=== PATIENT | female | born 1990 | race Caucasian/White ===

== ENCOUNTER 2016-12-29 21:46 | Outpatient (CLI) | payer OTHER ==
[~2016-12-29] VITALS: Ht 160 cm; Wt 74.7 kg
[~2016-12-29 21:46] MED LIST: PREN1TAB79 PO
[2016-12-29 22:09] VITALS: Ht 160 cm; Wt 74.7 kg
[2016-12-29 22:10] VITALS: BP 102/58; PULSE 74; RESP 18
--- NOTE | 2016-12-29 23:34 | RADRPT ---
PROCEDURE: US OB. CLINICAL INDICATION: Clinical concern for leaking amniotic fluid TECHNIQUE: Pelvic ultrasound performed for biophysical profile. COMPARISON: None FINDINGS: Single intrauterine gestation present with heart rate at 128 beats per minute. Presentation is ceph alic. Placenta is posterior, grade 1. Biophysical profile score is 8/8 (breathing=2, movement=2, t one =2, fluid volume=2). Amniotic fluid volume is within normal limits, with ESAU = 15.3 cm. RPTAT:HJJR IMPRESSION: 1. Biophysical profile score 8/8. 2. Amniotic fluid index is normal estimated at 15.3 cm. Physician Marjorie Date Time Electronically viewed and signed by Physician Marjorie on 12/29/2016 23:33 JR/
--- NOTE | 2016-12-29 23:35 | RADRPT ---
PROCEDURE: Obstetrical ultrasound greater than 14 weeks CLINICAL INDICATION: Active labor. Evaluate cervical length TECHNIQUE: Real time sonographic imaging of the gravid uterus is performed transabdominally and mu ltiple static harrington scale images of the cervix are submitted to the PACS for review. COMPARISON: Biophysical profile 12/29/2016 FINDINGS: The cervical os is closed with a normal cervical length of 2.5 cm. RPTAT:HJJR IMPRESSION: 1. Single viable intrauterine gestation with the cervical length estimated at 2.5 cm. Physician Marjorie Date Time Electronically viewed and signed by Physician Marjorie on 12/29/2016 23:35 JR/
[2016-12-29 23:49] LABS: ADD UMIC YES; URINE BILIRUBIN (Dip) 1+ (NEGATIVE); URINE BLOOD (Dip) NEGATIVE (NEGATIVE); URINE COLOR LT. YELLOW (YELLOW); URINE GLUCOSE (Dip) NEGATIVE (NEGATIVE); URINE KETONES (Dip) NEGATIVE (NEGATIVE); URINE LEUKOCYTE ESTERASE (Dip) 2+ (NEGATIVE); URINE NITRITE (Dip) NEGATIVE (NEGATIVE); URINE TOTAL PROTEIN (Dip) TRACE (NEGATIVE); URINE UROBILINOGEN (Dip) 2.0 E.U./dL (0.1-1.0)
[2016-12-30 00:20] LABS: ICTOTEST NEGATIVE (NEGATIVE)
[2016-12-30 00:21] LABS: BACTERIA,URINE FEW; SQUAMOUS EPITHELIAL CELL,UR MANY; URINE RBCS 0-2 /HPF (0)
--- NOTE | 2016-12-30 01:58 | QN ---
Documentation Comment 27 y.o G3!P1A!(sab) at 26weeks c/o srom sent for evaluation ROM plus neg spec exam no fluid FNN sent CVL 2.5 cm EFM uc 1-2 in hr u/a wbc 15-20 leuko estrase ++ urine culture was sent Rx macrobid BID #20 to be f/u st her OB ZACHARY QUINONES MD Dec 30, 2016 01:58
== END 2016-12-30 00:50 | disposition home or self-care (01) ==
LOC: OBT 21:46 → L-D 21:47 → OBT 12-30 00:50
PROVIDERS: ATTEND Obstetrics & Gynecology
DX: O26.892 Other specified pregnancy related conditions, second trimester (principal); Z3A.26 26 weeks gestation of pregnancy
CPT/HCPCS: 76817; 76818; 81001; 82731; 84112; 87086; Z7500; G0463

== ENCOUNTER 2017-03-15 14:52 | Inpatient (IN) | payer OTHER ==
[~2017-03-15] VITALS: Ht 160 cm; Wt 75.9 kg
[2017-03-15 15:42] VITALS: BP 103/58; PULSE 74; RESP 18
[2017-03-15 15:44] VITALS: Ht 160 cm; Wt 75.9 kg
--- NOTE | 2017-03-15 16:30 | RADRPT ---
PROCEDURE: Obstetrical ultrasound CLINICAL INDICATION: Labor TECHNIQUE: Multiple sonographic images of the pelvis were obtained. The images were reviewed on a PACS workstation. COMPARISON: None FINDINGS: The cervix is not well visualized. There is a single viable intrauterine gestation. Cardiac activity is present with 121 beats per minute. There is a vertex presentation. The placenta is posterior. There is no evidence for an abruption or placenta previa. There is a subjectively normal amount of amniotic fluid. Measurements were made in order to determine age. The results are as follows (cm): BPD =9.25 HC =32.25 AC =33.07 FL =7.21 Estimated gestational age by ultrasound of approximately 37 weeks, 0 days. The estimated date of delivery by ultrasound is 04/05/2017. Estimated gestational age by LMP of approximately 37 weeks, 0 days. The estimated date of delivery by LMP is 04/05/2017. EFW = 3082 grams (55th percentile) IMPRESSION: Single viable intrauterine gestation of approximately 37 weeks, 0 days . The estimated date of delivery is 04/05/2017 . Dating by ultrasound is consistent with dating by LMP. Cephalic presentation. Estimated weight is in the 55th percentile. RPTAT: EE Physician Tita Date Time Electronically viewed and signed by Physician Tita on 03/15/2017 16:29 /
--- NOTE | 2017-03-15 16:31 | RADRPT ---
PROCEDURE: US OB biophysical profile. CLINICAL INDICATION: evaluation, labor TECHNIQUE: Multiple sonographic images of the pelvis were obtained. The images were reviewed on a PACS workstation. COMPARISON: No prior studies are available for comparison. FINDINGS: There is a single viable intrauterine gestation. Cardiac activity is present with 136 beats per min nilda. There is a vertex presentation. The placenta is posterior. There is no evidence of placental abruption. There is a low - normal amount of amniotic fluid with an ESAU = 8.4 cm. Biophysical profile: movement 2/2 tone 2/2. breathing 2/2 ESAU 2/2 Total 02/28 RPTAT: AA . IMPRESSION: Normal biophysical profile. Low - normal ESAU of 8.4 cm. Physician Tita Date Time Electronically viewed and signed by Physician Tita on 03/15/2017 16:30 /
--- NOTE | 2017-03-15 20:54 | TRIAGE ---
OB Triage Datetime Report Generated by CPN: 03/15/2017 20:54 Datetime: 03/15/2017 20:38 Stage of : OB Triage Datetime: 03/15/2017 20:32 Labor Evaluation Frequency: 4-5 Monitor Mode: External Duration (sec)2399: 60 Quality: Moderate Pattern: Normal: <= 5 Contractions in 10 Minutes Resting Tone [place]: Relaxed Heart Rate FHR Baseline Rate: 130 Monitor Mode: External US FHR Baseline Changes: No Baseline Change Variability: Moderate 6-25 bpm Accelerations: 15X15 Decelerations: None Category: Category I Pain Assessment Pain Scale: 5 Pain Presence: Intermittent Pain Type: Contraction Pain Location: Abdomen Vaginal Exam Dilatation (cms): 5.0 Effacement (%): 80 Station: -2 Exam By: E LATISHA Membrane Status: Intact Vaginal Bleeding: Normal Show Cervix, Consistency: Soft Cervix, Position: Midposition Presentation 'A': Cephalic Datetime: 03/15/2017 19:53 Stage of : OB Triage Maternal Assessment Level of Consciousness: Fully Conscious Headache: Denies Blurred Vision: No Nausea/Vomiting: Denies Facial Edema: None Labor Evaluation Frequency: placed Monitor Mode: External Resting Tone [place]: Relaxed Heart Rate FHR Baseline Rate: 140 Monitor Mode: External US Pain Assessment Pain Scale: 5 Pain Presence: Intermittent Pain Type: Contraction Pain Location: Abdomen Datetime: 03/15/2017 17:00 Stage of : OB Triage Maternal Assessment Level of Consciousness: Fully Conscious Labor Evaluation Frequency: 4-15 Monitor Mode: External Duration (sec)2399: 70-120 Quality: Moderate Resting Tone [place]: Relaxed Heart Rate FHR Baseline Rate: 135 Monitor Mode: External US Variability: Moderate 6-25 bpm Accelerations: 15X15 Decelerations: None Pain Assessment Pain Scale: 3 Pain Presence: Intermittent Pain Type: Cramping Pain Location: Abdomen Pain Goal: 3 Pain Relief Measures: Comfort Measures Membrane Status: Intact Vaginal Bleeding: None Datetime: 03/15/2017 16:36 Vaginal Exam Dilatation (cms): 3.0 Effacement (%): 70 Station: -2 Exam By: tiffanie Vaginal Bleeding: None Cervix, Consistency: Soft Cervix, Position: Midposition Presentation 'A': Cephalic Datetime: 03/15/2017 16:07 Stage of : OB Triage Maternal Assessment Level of Consciousness: Fully Conscious Labor Evaluation Frequency: 5-13 Monitor Mode: External Duration (sec)2399: 60-200 Quality: Moderate Resting Tone [place]: Relaxed Heart Rate FHR Baseline Rate: 135 Monitor Mode: External US Variability: Moderate 6-25 bpm Accelerations: 15X15 Decelerations: None Category: Category I Pain Assessment Pain Scale: 3 Pain Presence: Intermittent Pain Type: Cramping Pain Location: Abdomen Pain Goal: 3 Pain Relief Measures: Comfort Measures Membrane Status: Intact Vaginal Bleeding: None Datetime: 03/15/2017 15:30 Assessment Type: Triage Maternal Assessment Level of Consciousness: Fully Conscious DTR's/Clonus: DTRs 2+; No Clonus Headache: Denies Blurred Vision: No Respiratory Effort: Unlabored; Regular Rhythm; Equal Expansion Breath Sounds, Left: Clear and Equal Breath Sounds, Right: Clear and Equal Nausea/Vomiting: Denies RUQ Epigastric Pain: Denies Lower Extremities Edema: None Degree: None Upper Extremities Edema: None Degree: None Facial Edema: None Fall Risk Assessment History of Falling: (0) No Secondary Diagnosis: (0) No Ambulatory Aid: (0) Bedrest/Nurse Assist IV Therapy: (0) No Gait: (0) Normal/Bedrest/Immobile Mental Status: (0) Oriented to Own Ability Fall Score: 0 Fall Risk Score Definition: No Risk: No action required Datetime: 03/15/2017 15:25 Monitor Mode: External Monitor Mode: External US Datetime: 03/15/2017 15:03 Time of Arrival: 03/15/2017 14:44 EGA: 37.0 Arrived By: Ambulatory Arrived From: Office Chief Complaint: PT SENT IN FOR C/O UC'S Movement: Present Contractions: Denies/Absent Rupture of Membranes: Denies Vaginal Bleeding: None Vaginal Discharge: Denies Recent Sexual Intercouse: Denies Abdominal Trauma: Not Applicable Patient Complaints: None Time Provider Notified: 03/15/2017 16:30 Provider Notified: ESHAHGIAN Initial Plan: EFM, BPP, EFW Datetime: 12/30/2016 00:50 Stage of : OB Triage Datetime: 12/30/2016 00:49 Labor Evaluation Frequency: 1/HR Monitor Mode: External Duration (sec)2399: 60 Quality: Mild Pattern: Normal: <= 5 Contractions in 10 Minutes Resting Tone [place]: Relaxed Heart Rate FHR Baseline Rate: 135 Monitor Mode: External US FHR Baseline Changes: No Baseline Change Variability: Moderate 6-25 bpm Accelerations: 15X15 Decelerations: None Category: Category I Datetime: 12/30/2016 00:00 Labor Evaluation Frequency: 1/HR Monitor Mode: External Duration (sec)2399: 60 Quality: Mild Pattern: Normal: <= 5 Contractions in 10 Minutes Resting Tone [place]: Relaxed Heart Rate FHR Baseline Rate: 135 FHR Baseline Changes: No Baseline Change Variability: Moderate 6-25 bpm Accelerations: 10X10 Decelerations: None Category: Category II Datetime: 12/29/2016 23:00 Labor Evaluation Frequency: 2/HR Monitor Mode: External Duration (sec)2399: 60 Quality: Mild Pattern: Normal: <= 5 Contractions in 10 Minutes Resting Tone [place]: Relaxed Heart Rate FHR Baseline Rate: 135 Monitor Mode: External US FHR Baseline Changes: No Baseline Change Variability: Moderate 6-25 bpm Accelerations: 10X10 Decelerations: None Category: Category II Datetime: 12/29/2016 22:25 Vaginal Exam Dilatation (cms): 0.0 Effacement (%): 0 Station: -3 Exam By: Lena LYN RN Vaginal Bleeding: None Cervix, Consistency: Firm Cervix, Position: Posterior Datetime: 12/29/2016 22:03 Stage of : OB Triage Assessment Type: Triage Time of Arrival: 12/29/2016 21:43 Arrived By: Wheelchair Arrived From: Home Chief Complaint: ROM X3 DAYS Time Provider Notified: 12/29/2016 22:38 Provider Notified: JONI Initial Plan: CALL RYAN RUTLEDGE (Annotations: Data stored by CPN on behalf of user) Maternal Assessment Level of Consciousness: Fully Conscious DTR's/Clonus: DTRs 2+; No Clonus Headache: Denies Blurred Vision: No Respiratory Effort: Unlabored; Regular Rhythm; Equal Expansion Breath Sounds, Left: Clear and Equal Breath Sounds, Right: Clear and Equal Nausea/Vomiting: Denies RUQ Epigastric Pain: Denies Lower Extremities Edema: None Degree: None Upper Extremities Edema: None Degree: None Facial Edema: None Temperature Route: Oral Fall Risk Assessment History of Falling: (0) No Secondary Diagnosis: (0) No Ambulatory Aid: (0) Bedrest/Nurse Assist IV Therapy: (0) No Gait: (0) Normal/Bedrest/Immobile Mental Status: (0) Oriented to Own Ability Fall Score: 0 Fall Risk Score Definition: No Risk: No action required Monitor Mode: External Monitor Mode: External US Pain Assessment Pain Scale: 0
[2017-03-15] MEDS ORDERED: CARBOPROST 250 MCG INJ IM PRN (21:00)
[2017-03-15] MEDS ORDERED: LIDOCAINE 1% (MPF) 30 ML INJ INJ PRN (21:00)
[2017-03-15] MEDS ORDERED: BUTORPHANOL 2 MG INJ IV PRN (21:00)
[2017-03-15] MEDS ORDERED: OXYTOCIN 30 UNITS/LR 500 ML IV PRN (21:00)
[2017-03-15] MEDS ORDERED: MISOPROSTOL 200 MCG TAB PR PRN (21:00)
[2017-03-15] MEDS ORDERED: IBUPROFEN 600 MG TAB PO PRN (21:00)
[2017-03-15] MEDS ORDERED: AMPICILLIN 2 GM/NS (PMX) 100 ML IV ONE (21:00)
[2017-03-15] MEDS ORDERED: METHYLERGONOVINE 0.2 MG INJ IM PRN (21:00)
[2017-03-15] MEDS ORDERED: OXYTOCIN 30 UNITS/LR 500 ML IV SCH ×2 (21:00)
[2017-03-15] MEDS: LACTATED RINGER'S 1,000 ML IV SCH (21:25)
[2017-03-15 21:39] LABS: BASOPHILS % 0.3 % (0.0-2.0); EOSINOPHILS % 0.4 % (0.0-7.0); HEMATOCRIT 34.9 % (37.0-47.0); HEMOGLOBIN 11.7 g/dl (12.0-16.0); LYMPHOCYTES # 2.6 10^3/ul (0.8-2.9); LYMPHOCYTES % 29.3 % (15.0-51.0); MEAN CORPUSCULAR HEMOGLOBIN 27.5 pg (29.0-33.0); MEAN CORPUSCULAR HGB CONC 33.5 g/dl (32.0-37.0); MEAN CORPUSCULAR VOLUME 82.1 fl (82.0-101.0); MEAN PLATELET VOLUME 10.8 fl (7.4-10.4); MONOCYTE # 0.6 10^3/ul (0.3-0.9); MONOCYTES % 6.9 % (0.0-11.0); NEUTROPHILS % 62.7 % (39.0-77.0); PLATELET COUNT 261 10^3/UL (140-415); RED BLOOD COUNT 4.25 10^6/ul (4.20-5.40); RED CELL DISTRIBUTION WIDTH 14.6 % (11.5-14.5); WHITE BLOOD COUNT 8.9 10^3/ul (4.8-10.8)
[2017-03-15 21:53] LABS: INR 0.95; PROTIME 12.7 Sec (12.2-14.2)
[2017-03-15 21:54] LABS: PARTIAL THROMBOPLASTIN TIME 31.9 Sec (25.0-35.0)
[2017-03-15] MEDS ORDERED: LACTATED RINGER'S 1,000 ML IV PRN (22:00)
[2017-03-16] MEDS ORDERED: AMPICILLIN 1 GM/NS (PMX) 50 ML IV SCH (01:00)
[2017-03-16] MEDS: LACTATED RINGER'S 1,000 ML IV SCH ×3 (05:09→22:05)
[2017-03-16] MEDS ORDERED: OXYTOCIN 30 UNITS/LR 500 ML IV SCH (20:00)
--- NOTE | 2017-03-16 20:14 | PREOPHP ---
DATE OF ADMISSION: 03/15/2017 Ms. Geovanna Collins is a 27-year-old, 4, para 2, EDC 04/05/2017. Intrauterine at 37 weeks' gestational age, admitted in labor. She complains of contractions regularly and pain scale is 6/10. She denies any vaginal bleeding or discharge. Currently her vaginal exam is 580 -2. She has an artificial rupture of membrane with clear fluids. Her care took place at [facility]. PAST MEDICAL HISTORY: None. MEDICATIONS: vitamins. PAST SURGICAL HISTORY: None. OB HISTORY: x2 vaginal deliveries, x1 missed baby. FINISHED GOODS STOCK CLERK HISTORY: Regular, 34 days. Denies any sexually transmitted disease. Sexually active with 1 partner. SOCIAL HISTORY: Denies any smoking, drugs, or alcohol. FAMILY HISTORY: None. REVIEW OF SYSTEMS: All within normal except history of present illness. PHYSICAL EXAMINATION: HEENT: Within normal. NECK: Without CARDIAC: S1, S2. Regular rhythm. ABDOMEN: Gravid, nontender. Negative CVA bilateral. EXTREMITIES: Negative edema. No calf tenderness. GENITOURINARY: Vaginal exam 5-6 cm dilated, 80 percent effaced, -2 station with artificial rupture of membranes. ASSESSMENT: Anterior at term and in labor. PLAN: Expected vaginal delivery. Dictated By: Anupam Kay MD /[email or web address]/ /Document#: [id number]
[2017-03-16] MEDS ORDERED: FENTAnyl 2MCG/ML-ROPIV 0.2% 100 ML ONE (22:12)
[2017-03-16] MEDS ORDERED: FENTAnyl 2MCG/ML-ROPIV 0.2% 100 ML BAG EPI SCH (23:00)
[2017-03-16] MEDS ORDERED: NALOXONE (0.4 MG/ML) INJ IV PRN (23:00)
[2017-03-16] MEDS: LACTATED RINGER'S 1,000 ML IV* SCH (23:13)
--- NOTE | 2017-03-16 23:13 | LDN ---
Date/Time of Note Date/Time of Note DATE: 03/16/17 TIME: 23:11 Delivery Summary Weeks of Gestation 37 Placenta Delivered: Spontaneously Meconium: none Perineal laceration: 1 Laceration repair: 1st degree perineal laceratio repair with 4-0 chromic Anesthesia type: Epidural Estimated blood loss: 200 Sponge & Needle done & correct: Yes All needle counts correct: Yes Any foreign bodies felt in the: No Problems: Delivery Information Sex Infant Sex: male Apgars 1 Minute: 8 5 Minute: 0 Suctioning Nose & mouth suctioned at uma: No Delee suction performed: No Umbilical Cord Umbilical cord with: 3 Vessels Cord presentations: nuchal cord Nuchal cord present X: 1 Cord Blood was obtained: Yes GRANT KING MD Mar 16, 2017 23:12
[2017-03-16] MEDS ORDERED: OXYCODONE/ASPIRIN (4.88/325) TAB PO PRN ×2 (23:30)
[2017-03-16] MEDS ORDERED: DIBUCAINE 1% 30 GM OINT PR PRN (23:30)
[2017-03-16] MEDS ORDERED: BENZOCAINE 20% 56 ML SPRAY TOP PRN (23:30)
[2017-03-16] MEDS ORDERED: CARBOPROST 250 MCG INJ IM PRN (23:30)
[2017-03-16] MEDS ORDERED: METHYLERGONOVINE 0.2 MG INJ IM PRN (23:30)
[2017-03-16] MEDS ORDERED: SENNA/DOCUSATE NA (8.6MG/50MG) TAB PO PRN (23:30)
[2017-03-16] MEDS ORDERED: WITCH HAZEL/GLYCERIN PAD PR PRN (23:30)
[2017-03-16] MEDS ORDERED: ONDANSETRON 4 MG INJ IV PRN (23:30)
[2017-03-16] MEDS ORDERED: LANOLIN 7 GM TUBE TOP PRN (23:30)
[2017-03-16] MEDS ORDERED: MISOPROSTOL 200 MCG TAB PR PRN (23:30)
[2017-03-16] MEDS ORDERED: OXYTOCIN 30 UNITS/LR 500 ML IV PRN (23:30)
[2017-03-17 01:10] VITALS: BP 104/59; PULSE 63; RESP 20
[2017-03-17 04:15] VITALS: BP 118/58; PULSE 69; RESP 18
[2017-03-17] MEDS: IBUPROFEN 600 MG TAB PO SCH ×4 (05:41→17:36)
[2017-03-17] MEDS: LACTATED RINGER'S 1,000 ML IV* SCH ×2 (07:13→15:13)
--- NOTE | 2017-03-17 08:05 | QN ---
Documentation Comment Progress note day 1 Awake alert oriented 3 Positive ambulation tolerating diet positive flatulence positive bowel movement No complaints Vital signs stable Abdomen soft nontender uterine fundus below umbilicus firm Extremity negative edema no calf tenderness CBC pending Assessment status post vaginal delivery day 1 with a first-degree perineal laceration repair Plan discharge home tomorrow follow-up CBC GRANT KING MD Mar 17, 2017 08:05
--- NOTE | 2017-03-17 08:06 | PD.PPDC ---
WELLNESS SPECIALIST Discharge Instruction Condition Patient Condition: Fair Diet Diet: Resume Regular Diet Activity/Restrictions Activity: Normal Activity May Shower Restrictions: No Exercising No Lifting No Driving No Sexual Activity Nothing in the Vagina No Burnt Store [place] No Tampons, douche Follow-up Follow-up with Physician: 3, Week/Weeks Return to clinic for [facility] [employer]BR[employer] D[employer]IT[facility]ER Instructions: Fever greater than 101 [place] Worsening abdominal pain Excessive Vaginal Bleeding More than 2 pads per hour Unable to tolerate diet OB Instructions: Breast Tenderness Depression Blurried Vision Headache Surgical Instructions: Incisional Drainage Incisional Redness GRANT KING MD Mar 17, 2017 08:06
--- NOTE | 2017-03-17 08:08 | DS ---
Date/Time of Note Date/Time of Note DATE: 03/17/17 TIME: 08:07 Obstetrical Discharge Record Final Diagnosis Final Diagnosis: Term delivered Vaginal Delivery Obstetrical Delivery: Spontaneous, Laceration, Repaired Complications Augmentation: Yes Induction: No Condition on Discharge Physical Assessment Voiding: Yes Bowel Movement: Yes Breast: Soft, non-tender, Filling Fundus: Firm Calf Tenderness: No Patient Condition: GRANT Waters MD Mar 17, 2017 08:08
[2017-03-17 08:32] VITALS: BP 94/56; PULSE 66; RESP 20
[2017-03-17 09:14] LABS: BASOPHILS % 0.3 % (0.0-2.0); EOSINOPHILS % 0.2 % (0.0-7.0); HEMATOCRIT 33.5 % (37.0-47.0); HEMOGLOBIN 11.1 g/dl (12.0-16.0); LYMPHOCYTES # 1.7 10^3/ul (0.8-2.9); MEAN CORPUSCULAR HEMOGLOBIN 27.5 pg (29.0-33.0); MEAN CORPUSCULAR HGB CONC 33.1 g/dl (32.0-37.0); MEAN CORPUSCULAR VOLUME 83.1 fl (82.0-101.0); MEAN PLATELET VOLUME 10.9 fl (7.4-10.4); MONOCYTE # 0.5 10^3/ul (0.3-0.9); MONOCYTES % 6.1 % (0.0-11.0); NEUTROPHILS % 74.2 % (39.0-77.0); PLATELET COUNT 244 10^3/UL (140-415); RED BLOOD COUNT 4.03 10^6/ul (4.20-5.40); RED CELL DISTRIBUTION WIDTH 14.6 % (11.5-14.5); WHITE BLOOD COUNT 8.8 10^3/ul (4.8-10.8)
[2017-03-17] MEDS: SENNA/DOCUSATE NA (8.6MG/50MG) TAB PO SCH ×2 (09:15→21:32)
[2017-03-17 16:00] VITALS: BP 103/67; PULSE 62; RESP 19
[2017-03-17 20:00] VITALS: BP 108/56; PULSE 63; RESP 18
[2017-03-18 04:00] VITALS: BP 101/58; PULSE 59; RESP 17
[2017-03-18] MEDS: IBUPROFEN 600 MG TAB PO SCH ×3 (06:00→11:47)
[2017-03-18 08:00] VITALS: BP 97/53; PULSE 81; RESP 18
[2017-03-18] MEDS ORDERED: DIPHTH/TET/ACEL PERTUSS (ADULT) 0.5 ML VIAL IM* ONE (09:00)
[2017-03-18] MEDS: SENNA/DOCUSATE NA (8.6MG/50MG) TAB PO SCH (09:15)
== END 2017-03-18 15:45 | disposition home or self-care (01) | DRG 775 ==
LOC: OBT 14:52 → L-D 14:52 → OBT 20:38 → L-D 20:38 → PP1 03-17 01:11
PROVIDERS: ADMIT Obstetrics & Gynecology; ATTEND Obstetrics & Gynecology
PROC: 10E0XZZ Delivery of Products of Conception, External Approach (ICD-10-PCS; principal; 2017-03-16)
PROC: 0HQ9XZZ Repair Perineum Skin, External Approach (ICD-10-PCS; 2017-03-16)
DX: O70.0 First degree perineal laceration during delivery (principal); O69.81X0 Labor and delivery complicated by cord around neck, without compression, not applicable or unspecified; Z37.0 Single live birth; Z3A.37 37 weeks gestation of pregnancy
CPT/HCPCS: 62319; 76815; 76818; 85025; 85610; 85730; 86592; 86900; 86901; 87340; 90715; G0463; J2590; J3010; J7120